=== PATIENT | female | born 1980 | race Caucasian/White ===

== ENCOUNTER 2023-07-29 07:05 | Day surgery (SDC) | payer BC ==
[2023-07-28 10:31] VITALS: BMI 43.0
[2023-07-29] MEDS ORDERED: PROPOFOL 200 MG/20 ML VIAL ONE (09:39)
[2023-07-29] MEDS ORDERED: Lidocaine 1% PF 5 ML VIAL ONE (09:39)
== END 2023-07-29 10:35 | disposition home or self-care (01) ==
LOC: SDC 07:05
PROVIDERS: ATTEND Internal Medicine Gastroenterology
PROC: 0DJ08ZZ Inspection of Upper Intestinal Tract, Via Natural or Artificial Opening Endoscopic (ICD-10-PCS; principal; 2023-07-29)
DX: J38.6 Stenosis of larynx (principal); K64.9 Unspecified hemorrhoids
CPT/HCPCS: J2704

== ENCOUNTER 2023-08-18 07:39 | Outpatient (CLI) | payer BC | END 2023-08-18 07:40 | disposition home or self-care (01) | LOC: NM 07:39 | PROVIDERS: ATTEND Internal Medicine Gastroenterology | DX: K30 Functional dyspepsia (principal) | CPT/HCPCS: 78264; A9541 ==